=== PATIENT | female | born 1945 | race Caucasian/White ===

== ENCOUNTER → 2016-08-28 | Outpatient (REF) | payer MEDICARE ==
[2016-08-28 16:32] LABS: BASO # 0.2 K/mm3 (0.0-0.2); BASO % 2.6 % (0.0-1.0); EOS # 0.2 K/mm3 (0.0-0.50); EOS % 2.7 % (0.0-3.0); LARGE UNSTAINED CELL # 0.1 K/mm3 (0.0-0.4); LARGE UNSTAINED CELL % 1.2 % (0.0-4.0); LYMPH % 25.8 % (24.0-44.0); MEAN CORPUSCULAR HEMOGLOBIN 31.8 pg (27.0-33.0); MEAN CORPUSCULAR HGB CONC 33.3 g/dl (32.0-36.5); MEAN CORPUSCULAR VOLUME 95.2 fl (80.0-96.0); MONO # 0.4 K/mm3 (0.0-0.8); MONO % 5.7 % (0.0-5.0); NEUTROPHILS # 4.6 K/mm3 (1.8-7.7); PLATELET COUNT, AUTOMATED 332 k/mm3 (150-450); RED CELL DISTRIBUTION WIDTH 13.2 % (11.5-14.5); WHITE BLOOD COUNT 7.4 K/mm3 (4.0-10.0)
[2016-08-28 17:48] LABS: ERYTHROCYTE SEDIMENTATION RATE 6 mm/hr (0-30)
[2016-08-30 14:09] LABS: Lyme Disease IgG/IgM Antibodie <0.91 ISR (0.00-0.90); Lyme Disease IgM Ab Quantitati <0.80 index (0.00-0.79)
== END ==
LOC: M LABDRAW1 15:42
PROVIDERS: ATTEND Orthopaedic Surgery
DX: M54.5 Low back pain (principal)

== ENCOUNTER → 2016-10-13 | Outpatient (CLI) | payer MEDICARE ==
[~2016-10-13] MED LIST: IRON1TAB PO; PRAM0.123 PO; SLO MAG PO; VITA200016 PO
[2016-10-13 12:59] LABS: BASO # 0.1 K/mm3 (0.0-0.2); EOS # 0.2 K/mm3 (0.0-0.50); LARGE UNSTAINED CELL # 0.1 K/mm3 (0.0-0.4); LARGE UNSTAINED CELL % 1.4 % (0.0-4.0); LYMPH # 2.2 K/mm3 (1.5-4.5); LYMPH % 28.7 % (24.0-44.0); MEAN CORPUSCULAR HEMOGLOBIN 31.7 pg (27.0-33.0); MEAN CORPUSCULAR HGB CONC 32.6 g/dl (32.0-36.5); MEAN CORPUSCULAR VOLUME 97.1 fl (80.0-96.0); MONO # 0.4 K/mm3 (0.0-0.8); MONO % 4.8 % (0.0-5.0); NEUTROPHILS # 4.5 K/mm3 (1.8-7.7); PLATELET COUNT, AUTOMATED 380 k/mm3 (150-450); WHITE BLOOD COUNT 7.3 K/mm3 (4.0-10.0)
[2016-10-13 13:20] LABS: ANION GAP 8 MEQ/L (8-16); BLOOD UREA NITROGEN 16 MG/DL (7-18); CALCIUM LEVEL 9.2 MG/DL (8.8-10.2); CARBON DIOXIDE LEVEL 29 MEQ/L (21-32); CHLORIDE LEVEL 105 MEQ/L (98-107); CREATININE FOR GFR 0.73 MG/DL (0.55-1.02); GLOMERULAR FILTRATION RATE > 60.0 (>39); GLUCOSE, FASTING 94 MG/DL (83-110); POTASSIUM SERUM 4.1 MEQ/L (3.5-5.1); SODIUM LEVEL 142 MEQ/L (136-145)
--- NOTE | 2016-10-13 13:29 | REP ---
CHEST, TWO VIEWS: HISTORY: Preadmission. A calcified granuloma is present in the right upper lobe. The left lung is clear. The heart is normal in size. The pulmonary vasculature is normal in appearance. The bony structure is intact. IMPRESSION: Old granulomatous disease. Signed by Nader Rivera MD 10/13/2016 01:30 P
--- NOTE | 2016-10-13 18:02 | ECGEPIP ---
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 Subtle ST scooping No prior tracing for comparison Clinical correlation advised. Electronically Signed On 10-13-2016 18:01:47 EST by Ronni Mccarthy
== END ==
LOC: M LAB 11:57
PROVIDERS: ATTEND Podiatrist
DX: L98.8 Other specified disorders of the skin and subcutaneous tissue (principal)

== ENCOUNTER → 2016-10-22 | Day surgery (SDC) | payer MEDICARE ==
[~2016-10-22] VITALS: Ht 157.5 cm; Wt 61.7 kg
[~2016-10-22] MED LIST changes: +BACITRACIN PWD 50,000 UNITS VIAL As Ordered ONE; +BACITRACIN PWD 50,000 UNITS VIAL IR ONE; +BUPIVACAINE HCL 0.5% 30 ML VIAL As Ordered ONE; +BUPIVACAINE HCL 0.5% 30 ML VIAL SC ONE; +LIDOCAINE 2% INJ 100 MG/5 ML SDV (FOR ANES.) As Ordered ONE; +LIDOCAINE 2% MDV 20 ML VIAL As Ordered ONE; +LIDOCAINE 2% MDV 20 ML VIAL SC ONE; +LR 1,000 ML IV SCH; +MIDAZOLAM INJ 2 MG/2 ML VIAL (J2250) As Ordered ONE; +NEOSPORIN GU IRRIG 20 ML VIAL As Ordered ONE; +NEOSPORIN GU IRRIG 20 ML VIAL IR ONE; +PROPOFOL 200 MG/20 ML VIAL As Ordered ONE; +dexameTHASONE 4 MG/ML 1ML VIAL (J1100) As Ordered ONE; +dexameTHASONE 4 MG/ML 1ML VIAL (J1100) XX ONE; +fentaNYL 100 MCG/2 ML INJECTION (J3010) As Ordered ONE
[2016-10-22 10:05] VITALS: BP 130/62
--- NOTE | 2016-10-22 13:12 | RO ---
DATE OF PROCEDURE: 10/22/2016 PREPROCEDURE DIAGNOSIS: Soft tissue mass, plantar surface fourth toe, right foot. POSTPROCEDURE DIAGNOSIS: Soft tissue mass, plantar surface fourth toe, right foot. PROCEDURE PERFORMED: Excision of soft tissue mass fourth toe, right foot. SURGEON: Ronni Ennis DPM ASSISTANT CHIEF OF POLICE: None. IMPLANTABLES: None. IRRIGATION: Dilute Bacitracin, neomycin, and polymyxin B solution. HEMOSTASIS: Ankle pneumatic tourniquet at 200 mmHg for 10 minutes. ANESTHESIA: Local MAC. DESCRIPTION OF PROCEDURE: On 10/22/2016, this 71-year-old white female was taken from the hospital room to the operating room and placed on the operating table in a supine position. Following the induction of IV sedation and local and regional anesthesia, the right lower extremity was prepped and draped in the usual aseptic manner. The ankle pneumatic tourniquet was rapidly inflated to 200 mmHg. Attention was directed to the plantar surface of the right foot and the following procedure was performed: EXCISION OF SOFT TISSUE MASS, FOURTH TOE, RIGHT FOOT: Incision was made on the plantar surface of the foot over an area of soft tissue swelling. Dissection was carried down. There was an area of soft tissue swelling with some hemorrhagic tissue, possible pedal varix, cystic change . This area was excised. The extensor tendon was released on the medial side and was inspected for any penetration or mass formation. No other areas of irrigation were noted. THe wound was flushed with copious amounts of dilute bacitracin, neomycin, and polymyxin B solution. THe skin was coapted and maintained utilizing #4-0 Prolene in a simple interrupted type fashion. Sterile dressing was applied, consisting of Adaptic, 4 x 4's, Moses and Coban. Ankle pneumatic tourniquet was rapidly deflated and instantaneous capillary refill time was noted to digits 1 through 5 of the patient's right foot. The patient, after apparently tolerating the surgical procedure well, was taken from the operating room to the recovery room, vital signs stable, patient afebrile for further monitoring by the anesthesia department. All surgical specimens removed during the operating procedure were sent to pathology for gross microscopic examination. Postoperative instructions given upon discharge. VIVIENNE
== END | disposition home or self-care (01) ==
LOC: M SDC 07:13
PROVIDERS: ATTEND Podiatrist
DX: M67.471 Ganglion, right ankle and foot (principal); K21.9 Gastro-esophageal reflux disease without esophagitis; Z79.899 Other long term (current) drug therapy; Z88.8 Allergy status to other drugs, medicaments and biological substances
CPT/HCPCS: 28092; 88304; J1100; J2250; J3010

== ENCOUNTER → 2016-12-11 | Outpatient (REF) | payer MEDICARE ==
[~2016-12-11] MED LIST changes: -BACITRACIN PWD 50,000 UNITS VIAL As Ordered ONE; -BACITRACIN PWD 50,000 UNITS VIAL IR ONE; -BUPIVACAINE HCL 0.5% 30 ML VIAL As Ordered ONE; -BUPIVACAINE HCL 0.5% 30 ML VIAL SC ONE; -LIDOCAINE 2% INJ 100 MG/5 ML SDV (FOR ANES.) As Ordered ONE; -LIDOCAINE 2% MDV 20 ML VIAL As Ordered ONE; -LIDOCAINE 2% MDV 20 ML VIAL SC ONE; -LR 1,000 ML IV SCH; -MIDAZOLAM INJ 2 MG/2 ML VIAL (J2250) As Ordered ONE; -NEOSPORIN GU IRRIG 20 ML VIAL As Ordered ONE; -NEOSPORIN GU IRRIG 20 ML VIAL IR ONE; -PROPOFOL 200 MG/20 ML VIAL As Ordered ONE; -dexameTHASONE 4 MG/ML 1ML VIAL (J1100) As Ordered ONE; -dexameTHASONE 4 MG/ML 1ML VIAL (J1100) XX ONE; -fentaNYL 100 MCG/2 ML INJECTION (J3010) As Ordered ONE
[2016-12-11 14:07] LABS: BASO # 0.1 K/mm3 (0.0-0.2); BASO % 0.6 % (0.0-1.0); EOS # 0.2 K/mm3 (0.0-0.50); EOS % 1.8 % (0.0-3.0); LARGE UNSTAINED CELL # 0.1 K/mm3 (0.0-0.4); LARGE UNSTAINED CELL % 0.9 % (0.0-4.0); LYMPH # 1.6 K/mm3 (1.5-4.5); LYMPH % 17.3 % (24.0-44.0); MEAN CORPUSCULAR HEMOGLOBIN 31.7 pg (27.0-33.0); MEAN CORPUSCULAR HGB CONC 32.6 g/dl (32.0-36.5); MEAN CORPUSCULAR VOLUME 97.2 fl (80.0-96.0); MONO # 0.4 K/mm3 (0.0-0.8); MONO % 4.1 % (0.0-5.0); NEUTROPHILS # 7.1 K/mm3 (1.8-7.7); NEUTROPHILS % 75.4 % (36.0-66.0); PLATELET COUNT, AUTOMATED 316 k/mm3 (150-450); RED CELL DISTRIBUTION WIDTH 13.2 % (11.5-14.5); WHITE BLOOD COUNT 9.4 K/mm3 (4.0-10.0)
[2016-12-11 14:28] LABS: ANION GAP 7 MEQ/L (8-16); BLOOD UREA NITROGEN 12 MG/DL (7-18); CALCIUM LEVEL 8.8 MG/DL (8.8-10.2); CARBON DIOXIDE LEVEL 28 MEQ/L (21-32); CHLORIDE LEVEL 102 MEQ/L (98-107); CREATININE FOR GFR 0.67 MG/DL (0.55-1.02); GLOMERULAR FILTRATION RATE > 60.0 (>39); GLUCOSE, FASTING 72 MG/DL (83-110); POTASSIUM SERUM 4.5 MEQ/L (3.5-5.1); SODIUM LEVEL 137 MEQ/L (136-145)
== END ==
LOC: M LABNEURO 09:33
PROVIDERS: ATTEND Podiatrist
DX: Z01.812 Encounter for preprocedural laboratory examination (principal); Z79.899 Other long term (current) drug therapy

== ENCOUNTER → 2016-12-17 | Day surgery (SDC) | payer MEDICARE ==
[~2016-12-17] VITALS: Ht 157.5 cm; Wt 61.7 kg
[~2016-12-17] MED LIST changes: +BACITRACIN PWD 50,000 UNITS VIAL As Ordered ONE; +BUPIVACAINE HCL 0.5% 30 ML VIAL As Ordered ONE; +LIDOCAINE 2% MDV 20 ML VIAL As Ordered ONE; +LR 1,000 ML IV SCH; +MIDAZOLAM INJ 2 MG/2 ML VIAL (J2250) As Ordered ONE; +NEOSPORIN GU IRRIG 20 ML VIAL As Ordered ONE; +NORCO, ANEXSIA 5/325MG TABLET (HYDROcodone/ACETAMINOPHEN) PO PRN; +ONDANSETRON 4MG/2ML VIAL (J2405) As Ordered ONE; +ONDANSETRON 4MG/2ML VIAL (J2405) IV PRN; +PERCOCET 5MG/325MG TAB PO PRN; +PROPOFOL 500 MG/50 ML VIAL As Ordered ONE; +dexameTHASONE 4 MG/ML 1ML VIAL (J1100) As Ordered ONE; +diphenhydrAMINE INJ 50MG/ML VIAL (J1200) As Ordered ONE; +fentaNYL 100 MCG/2 ML INJECTION (J3010) As Ordered ONE
[2016-12-17] MEDS: diphenhydrAMINE INJ 50MG/ML VIAL (J1200) IV PRN ×2 (09:33→10:00)
[2016-12-17 12:10] VITALS: BP 148/65
--- NOTE | 2016-12-17 23:15 | RO ---
DATE OF PROCEDURE: 12/17/2016 PREOPERATIVE DIAGNOSIS: Soft tissue mass plantar surface fourth toe right foot. POSTOPERATIVE DIAGNOSES: Fibrous tissue with keloid formation fourth toe right foot. OPERATIVE PROCEDURE: SURGEON: Ronni Ennis DPM ADULT BASIC EDUCATION TEACHER: Twila ANESTHESIA: Local Monitored anesthesia care (MAC) IRRIGATION: Dilute bacitracin, neomycin and polymyxin B solution. HEMOSTASIS: Ankle pneumatic tourniquet at 200 mmHg for 13 minutes. DESCRIPTION OF OPERATION: On 12/17/2016, this 71-year-old female was taken from her hospital room to the operating room and placed on the operating room table in the supine position. Following the induction of IV sedation and local anesthesia, attention was directed to the patient's right foot. However, the patient was having some sporadic movement of her upper arms and legs. We were concerned for a possible side effect from anesthesia. Therefore, the patient was lightened from anesthesia and she was brought to the recovery room for observation. After approximately an hour the patient was feeling fine and wished to reattempt surgery. She was brought into the operating room, given minimal sedation and no such reoccurrance was noted. Attention was directed to the plantar surface of the foot. The tourniquet was rapidly inflated and attention was directed to the fourth toe of the right foot where the following procedure was performed. ELLIPSE OF KELOID TISSUE AND EXCISION OF FIBROUS TISSUE PLANTAR SURFACE FOURTH TOE RIGHT FOOT. Attention was directed to the patient's fourth toe. 2 cm elliptical incisions were placed around the surgical incision. The fibrous tissue was then excised to the level of the flexor tendons. The wound was thoroughly explored. There was no nodule formation on the plantar tendons. The tendons were functioning. No other soft tissue mass could be palpated. The wound was thoroughly lavaged with dilute bacitracin and polymyxin B solution. Attention was directed towards closure where the skin was coapted and maintained with #4-0 Prolene in a simple interrupted type fashion. Compressive dressing was applied to the patient's right foot. The tourniquet was rapidly deflated and instantaneous capillary refill time was noted in digits 1 through 5 of the patient's right foot. The patient having apparently tolerated the surgical procedure well was taken to from the OR to the recovery room with vital signs stable, the patient afebrile for further monitoring by the anesthesia department. All surgical specimens removed during the operative procedure were sent to pathology for gross and microscopic examination. Postoperative instructions were given upon discharge.
== END | disposition home or self-care (01) ==
LOC: M SDC 07:09
PROVIDERS: ATTEND Podiatrist
DX: M79.89 Other specified soft tissue disorders (principal); D49.2 Neoplasm of unspecified behavior of bone, soft tissue, and skin; M20.41 Other hammer toe(s) (acquired), right foot; Z79.899 Other long term (current) drug therapy; Z88.8 Allergy status to other drugs, medicaments and biological substances
CPT/HCPCS: 28043; 88304; J0690; J1100; J1200; J2250; J2405; J3010

== ENCOUNTER 2017-11-13 08:58 | Day surgery (SDC) | payer MEDICARE ==
[2017-11-13] MEDS ORDERED: LIDOCAINE 1% MDV 20ML VIAL SQ (09:00)
[2017-11-13] MEDS: LR 1,000 ML IV ×2 (09:46→11:17)
[2017-11-13] MEDS ORDERED: MIDAZOLAM INJ 2 MG/2 ML VIAL (J2250) As Ordered (10:43)
[2017-11-13] MEDS ORDERED: PROPOFOL 200 MG/20 ML VIAL As Ordered ×3 (10:44→13:41)
[2017-11-13] MEDS ORDERED: LIDOCAINE 2% INJ 100 MG/5 ML SDV (FOR ANES.) As Ordered (10:44)
[2017-11-13] MEDS: BUPIVACAINE HCL 0.5% 30 ML VIAL As Ordered (10:58)
[2017-11-13] MEDS: LIDOCAINE 2% MDV 20 ML VIAL As Ordered (10:58)
[2017-11-13] MEDS: NEOSPORIN GU IRRIG 20 ML VIAL As Ordered (10:58)
[2017-11-13] MEDS: BACITRACIN PWD 50,000 UNITS VIAL As Ordered (10:58)
[2017-11-13] MEDS: dexameTHASONE 4 MG/ML 1ML VIAL (J1100) As Ordered (11:00)
[2017-11-13] MEDS ORDERED: HALOPERIDOL 5 MG/ML VIAL (J1630) IV (12:00)
[2017-11-13] MEDS: HALOPERIDOL 5 MG/ML VIAL (J1630) IV (12:00)
[2017-11-13] MEDS ORDERED: fentaNYL 100 MCG/2 ML INJECTION (J3010) IV (12:15)
[2017-11-13] MEDS ORDERED: PERCOCET 5MG/325MG TAB PO (12:15)
[2017-11-13] MEDS: PRAMIPEXOLE (MIRAPEX) 0.125 MG TAB PO (12:15)
[2017-11-13] MEDS ORDERED: FLUMAZENIL 0.5 MG/5 ML VIAL As Ordered (13:42)
[2017-11-13] MEDS ORDERED: diphenhydrAMINE INJ 50MG/ML VIAL (J1200) As Ordered (13:42)
== END 2017-11-13 14:05 | disposition home or self-care (01) ==
LOC: M SDC 08:58
DX: G57.61 Lesion of plantar nerve, right lower limb (principal); M79.671 Pain in right foot; Z79.82 Long term (current) use of aspirin; Z79.899 Other long term (current) drug therapy; Z88.8 Allergy status to other drugs, medicaments and biological substances
CPT/HCPCS: 28080

== ENCOUNTER → 2019-04-11 | Outpatient (REF) | payer MEDICARE ==
[~2019-04-11] MED LIST changes: +ASPI81TA26 PO; -BACITRACIN PWD 50,000 UNITS VIAL As Ordered ONE; -BUPIVACAINE HCL 0.5% 30 ML VIAL As Ordered ONE; +FERR1TAB8; +GABA-843; -LIDOCAINE 2% MDV 20 ML VIAL As Ordered ONE; -LR 1,000 ML IV SCH; -MIDAZOLAM INJ 2 MG/2 ML VIAL (J2250) As Ordered ONE; -NEOSPORIN GU IRRIG 20 ML VIAL As Ordered ONE; -NORCO, ANEXSIA 5/325MG TABLET (HYDROcodone/ACETAMINOPHEN) PO PRN; -ONDANSETRON 4MG/2ML VIAL (J2405) As Ordered ONE; -ONDANSETRON 4MG/2ML VIAL (J2405) IV PRN; -PERCOCET 5MG/325MG TAB PO PRN; -PRAM0.123 PO; +PRAM0.126 PO; -PROPOFOL 500 MG/50 ML VIAL As Ordered ONE; -dexameTHASONE 4 MG/ML 1ML VIAL (J1100) As Ordered ONE; -diphenhydrAMINE INJ 50MG/ML VIAL (J1200) As Ordered ONE; -fentaNYL 100 MCG/2 ML INJECTION (J3010) As Ordered ONE
== END ==
LOC: M LAB REF 19:42
PROVIDERS: ATTEND Podiatrist
DX: M67.471 Ganglion, right ankle and foot (principal)

== ENCOUNTER → 2019-09-23 | Outpatient (RCR) | payer MEDICARE, BC | LOC: M PT 09-02 09:46 | PROVIDERS: ATTEND Psychiatry & Neurology Neurology | DX: I89.0 Lymphedema, not elsewhere classified (principal) ==

== ENCOUNTER 2019-10-10 14:04 | Outpatient (RCR) | payer MEDICARE, BC | END 2019-10-22 | LOC: M PT 14:04 | PROVIDERS: ATTEND Psychiatry & Neurology Neurology | DX: I89.0 Lymphedema, not elsewhere classified (principal) ==

== ENCOUNTER 2019-12-09 08:23 | Outpatient (RCR) | payer MEDICARE, BC | END 2019-12-22 | LOC: M PT 08:23 | PROVIDERS: ATTEND Psychiatry & Neurology Neurology | DX: Z51.89 Encounter for other specified aftercare (principal); M79.604 Pain in right leg ==

== ENCOUNTER 2020-06-11 08:26 | Outpatient (RCR) | payer MEDICARE, BC | END 2020-06-23 | LOC: M PT 08:26 | PROVIDERS: ATTEND Psychiatry & Neurology Neurology | DX: M79.604 Pain in right leg (principal) ==

== ENCOUNTER 2020-12-11 09:04 | Outpatient (RCR) | payer MEDICARE, BC ==
[~2020-12-11 09:04] MED LIST changes: +GABA-282; -GABA-843
[2020-12-20] MEDS ORDERED: MIRA0.254 PO ×2 (12:46→13:00)
[2020-12-20] MEDS ORDERED: OMEP-221 PO (12:46)
[2020-12-20] MEDS ORDERED: MIRA0.12 PO (13:00)
[2020-12-20] MEDS ORDERED: IRON65TA2 PO (13:00)
[2020-12-20] MEDS ORDERED: ULTR5TAB PO (13:00)
[2020-12-20] MEDS ORDERED: RA B2500 PO (13:00)
[2020-12-20] MEDS ORDERED: LATA0.0015 OP (13:00)
== END 2020-12-21 ==
LOC: M PT 09:04
PROVIDERS: ATTEND Internal Medicine
DX: I89.0 Lymphedema, not elsewhere classified (principal)

== ENCOUNTER → 2021-01-02 | Outpatient (CLI) | payer MEDICARE, BC ==
[~2021-01-02] MED LIST changes: +IRON65TA2 PO; +LATA0.0015 OP; +MIRA0.12 PO; +MIRA0.254 PO; +OMEP-221 PO; +RA B2500 PO; +ULTR5TAB PO
== END ==
LOC: M LABSMTC 10:47
PROVIDERS: ATTEND Anesthesiology
DX: Z01.818 Encounter for other preprocedural examination (principal); Z11.52 Encounter for screening for COVID-19

== ENCOUNTER 2021-01-07 07:18 | Day surgery (SDC) | payer MEDICARE, BC ==
[~2021-01-07] VITALS: Ht 157.5 cm; Wt 59.4 kg
[~2021-01-07 07:18] MED LIST changes: +NS 1,000 ML IV ONE
[2021-01-07] MEDS ORDERED: propofoL 200 MG/20 ML VIAL As Ordered ONE ×2 (08:16→08:33)
[2021-01-07] MEDS ORDERED: LIDOCAINE 2% INJ 100 MG/5 ML SYRINGE As Ordered ONE (08:16)
[2021-01-07] MEDS ORDERED: fentaNYL 100 MCG/2 ML INJECTION (J3010) As Ordered ONE (08:17)
--- NOTE | 2021-01-07 08:31 | ROOR ---
Patient Name: Mirian Pena Procedure Date: 01/07/2021 8:18 AM Date of : 1945 Age: 75 Room: [facility] Gender: Female Note Status: Finalized Procedure: Upper GI endoscopy Indications: Iron deficiency anemia Providers: Justo Smith MD Referring MD: CLAUDIA GURROLA MD Requesting Provider: Medicines: Monitored Anesthesia Care Complications: No immediate complications. Procedure: Pre-Anesthesia Assessment: - Prior to the procedure, a History and Physical was performed, and patient medications and allergies were reviewed. The patient is competent. The risks and benefits of the procedure and the sedation options and risks were discussed with the patient. All questions were answered and informed consent was obtained. Patient identification and proposed procedure were verified by the physician, the nurse and the anesthesiologist in the procedure room. Mental Status Examination: alert and oriented. Airway Examination: normal oropharyngeal airway and neck mobility. Respiratory Examination: clear to auscultation. CV Examination: normal. Prophylactic Antibiotics: The patient does not require prophylactic antibiotics. Prior Anticoagulants: The patient has taken no previous anticoagulant or antiplatelet agents. ASA Grade Assessment: II - A patient with mild systemic disease. After reviewing the risks and benefits, the patient was deemed in satisfactory condition to undergo the procedure. The anesthesia plan was to use monitored anesthesia care (MAC). Immediately prior to administration of medications, the patient was re-assessed for adequacy to receive sedatives. The heart rate, respiratory rate, oxygen saturations, blood pressure, adequacy of pulmonary ventilation, and response to care were monitored throughout the procedure. The physical status of the patient was re-assessed after the procedure. The Endoscope was introduced through the mouth, and advanced to the second part of duodenum. The upper GI endoscopy was accomplished without difficulty. The patient tolerated the procedure well. Findings: A large hiatal hernia was present. The Z-line was regular and was found 35 cm from the incisors. Scattered mild inflammation characterized by erythema, friability and granularity was found in the gastric antrum. Biopsies were taken with a cold forceps for Helicobacter pylori testing. Verification of patient identification for the specimen was done by the physician and nurse using the patient's name, date and medical record number. Estimated blood loss was minimal. The duodenal bulb and second portion of the duodenum were normal. Impression: - Large hiatal hernia. - Z-line regular, 35 cm from the incisors. - Gastritis. Biopsied. - Normal duodenal bulb and second portion of the duodenum. Recommendation: - Patient has a contact number available for emergencies. The signs and symptoms of potential delayed complications were discussed with the patient. Return to normal activities tomorrow. Written discharge instructions were provided to the patient. - High fiber diet. - Continue present medications. - Await pathology results. - Follow an antireflux regimen. - Telephone GI clinic for pathology results in 2 weeks. - Return to primary care physician. Procedure Code(s): --- Professional --- 00631, Esophagogastroduodenoscopy, flexible, transoral; with biopsy, single or multiple Diagnosis Code(s): --- Professional --- K44.9, Diaphragmatic hernia without obstruction or gangrene K29.70, Gastritis, unspecified, without bleeding D50.9, Iron deficiency anemia, unspecified CPT copyright 2019 [employer]. All rights reserved. The codes documented in this report are preliminary and upon ventilated rib fitter review may be revised to meet current compliance requirements. Justo Smith MD Justo Smith MD 01/07/2021 8:31:34 AM Electronically signed by Justo Smith MD Number of Addenda: 0 Note Initiated On: 01/07/2021 8:18 AM Estimated Blood Loss: Estimated blood loss was minimal.
--- NOTE | 2021-01-07 09:07 | ROOR ---
Patient Name: Mirian Pena Procedure Date: 01/07/2021 8:19 AM Date of : 1945 Age: 75 Room: [facility] Gender: Female Note Status: Finalized Procedure: Colonoscopy Indications: Iron deficiency anemia Providers: Justo Smith MD Referring MD: CLAUDIA GURROLA MD Requesting Provider: Medicines: Monitored Anesthesia Care Complications: No immediate complications. Procedure: Pre-Anesthesia Assessment: - Prior to the procedure, a History and Physical was performed, and patient medications and allergies were reviewed. The patient is competent. The risks and benefits of the procedure and the sedation options and risks were discussed with the patient. All questions were answered and informed consent was obtained. Patient identification and proposed procedure were verified by the physician, the nurse and the anesthesiologist in the procedure room. Mental Status Examination: alert and oriented. Airway Examination: normal oropharyngeal airway and neck mobility. Respiratory Examination: clear to auscultation. CV Examination: normal. Prophylactic Antibiotics: The patient does not require prophylactic antibiotics. Prior Anticoagulants: The patient has taken no previous anticoagulant or antiplatelet agents. ASA Grade Assessment: II - A patient with mild systemic disease. After reviewing the risks and benefits, the patient was deemed in satisfactory condition to undergo the procedure. The anesthesia plan was to use monitored anesthesia care (MAC). Immediately prior to administration of medications, the patient was re-assessed for adequacy to receive sedatives. The heart rate, respiratory rate, oxygen saturations, blood pressure, adequacy of pulmonary ventilation, and response to care were monitored throughout the procedure. The physical status of the patient was re-assessed after the procedure. The Colonoscope was introduced through the anus and advanced to the terminal ileum, with identification of the appendiceal orifice and IC valve. The colonoscopy was performed without difficulty. The patient tolerated the procedure well. The quality of the bowel preparation was good. The terminal ileum, ileocecal valve, appendiceal orifice, and rectum were photographed. Scope insertion time was 2 minutes. Scope withdrawal time was 9 minutes. The total duration of the procedure was 12 minutes. Findings: The perianal and digital rectal examinations were normal. The terminal ileum appeared normal. A 3 mm polyp was found in the ascending colon. The polyp was sessile. The polyp was removed with a cold snare. Resection and retrieval were complete. Verification of patient identification for the specimen was done by the physician and nurse using the patient's name, date and medical record number. Estimated blood loss was minimal. Three medium-sized patchy angioectasias with typical arborization were found in the ascending colon. Coagulation for destruction of remaining portion of lesion using argon plasma at 0.8 liters/minute and 20 rodriguez was successful. Non-bleeding external and internal hemorrhoids were found during retroflexion. The hemorrhoids were large. Impression: - The examined portion of the ileum was normal. - One 3 mm polyp in the ascending colon, removed with a cold snare. Resected and retrieved. - Three colonic angioectasias. Treated with argon plasma coagulation (APC). - Non-bleeding external and internal hemorrhoids. Recommendation: - Patient has a contact number available for emergencies. The signs and symptoms of potential delayed complications were discussed with the patient. Return to normal activities tomorrow. Written discharge instructions were provided to the patient. - High fiber diet. - Continue present medications. - Await pathology results. - Repeat colonoscopy in 5-10 years for surveillance and depending on clinical and functional status. - Telephone GI clinic for pathology results in 2 weeks. - Return to primary care physician. - Check CBC, serum iron , transferrin and ferritin levels (fasting labs) in 2 months. Procedure Code(s): --- Professional --- 29619, Colonoscopy, flexible; with ablation of tumor(s), polyp(s), or other lesion(s) (includes pre- and post-dilation and guide wire passage, when performed) 80477, 59, Colonoscopy, flexible; with removal of tumor(s), polyp(s), or other lesion(s) by snare technique Diagnosis Code(s): --- Professional --- K64.8, Other hemorrhoids K63.5, Polyp of colon K55.20, Angiodysplasia of colon without hemorrhage D50.9, Iron deficiency anemia, unspecified CPT copyright 2019 [employer]. All rights reserved. The codes documented in this report are preliminary and upon certified medical coder review may be revised to meet current compliance requirements. Justo Smith MD Justo Smith MD 01/07/2021 9:06:43 AM Electronically signed by Justo Smith MD Number of Addenda: 0 Note Initiated On: 01/07/2021 8:19 AM Estimated Blood Loss: Estimated blood loss was minimal.
[2021-01-07 09:15] VITALS: BP 151/63
== END 2021-01-07 09:35 | disposition home or self-care (01) ==
LOC: M OPP 07:18
PROVIDERS: ATTEND Internal Medicine Gastroenterology
DX: K63.5 Polyp of colon (principal); K55.20 Angiodysplasia of colon without hemorrhage; K64.8 Other hemorrhoids; D50.9 Iron deficiency anemia, unspecified; K44.9 Diaphragmatic hernia without obstruction or gangrene; K29.70 Gastritis, unspecified, without bleeding; Z79.899 Other long term (current) drug therapy; Z88.8 Allergy status to other drugs, medicaments and biological substances; Z91.041 Radiographic dye allergy status; Z91.048 Other nonmedicinal substance allergy status
CPT/HCPCS: 43239; 45385; 45388; 88305; J3010

== ENCOUNTER → 2021-04-02 | Outpatient (CLI) | payer MEDICARE, BC ==
[~2021-04-02] MED LIST changes: -NS 1,000 ML IV ONE
[2021-04-02 09:49] LABS: BASO # 0.1 10^3/uL (0.0-0.2); BASO % 1.2 % (0.0-1.0); EOS # 0.2 10^3/uL (0.0-0.5); EOS % 3.1 % (0.0-3.0); HEMATOCRIT 42.2 % (36.0-47.0); HEMOGLOBIN 13.9 g/dl (12.0-15.5); LYMPH # 1.8 10^3/uL (1.5-5.0); LYMPH % 24.3 % (24.0-44.0); MEAN CORPUSCULAR HEMOGLOBIN 31.7 pg (27.0-33.0); MEAN CORPUSCULAR HGB CONC 32.9 g/dl (32.0-36.5); MEAN CORPUSCULAR VOLUME 96.1 fl (80.0-96.0); MONO # 0.7 10^3/uL (0.0-0.8); MONO % 9.6 % (2.0-8.0); NEUTROPHILS # 4.5 10^3/uL (1.5-8.5); NEUTROPHILS % 61.5 % (36.0-66.0); PLATELET COUNT, AUTOMATED 320 10^3/uL (150-450); RED BLOOD COUNT 4.39 10^6/uL (4.00-5.40); WHITE BLOOD COUNT 7.3 10^3/uL (4.0-10.0)
[2021-04-02 10:19] LABS: BLOOD UREA NITROGEN 12 MG/DL (7-18); CREATININE FOR GFR 0.65 MG/DL (0.55-1.30); FERRITIN 27 NG/ML (8-252); GLOMERULAR FILTRATION RATE > 60.0 (>39); IRON (FE) 40 UG/DL (50-170); PERCENT SATURATION 10.4 % (13.2-45.0); TOTAL IRON BINDING CAPACITY 383 UG/DL (250-450)
== END ==
LOC: M LAB 09:23
PROVIDERS: ATTEND Internal Medicine Gastroenterology
DX: D50.9 Iron deficiency anemia, unspecified (principal); K55.20 Angiodysplasia of colon without hemorrhage

== ENCOUNTER 2021-06-12 08:21 | Outpatient (RCR) | payer MEDICARE, BC | END 2021-06-23 | LOC: M PT 08:21 | PROVIDERS: ATTEND Internal Medicine | DX: M79.604 Pain in right leg (principal) ==

== ENCOUNTER 2022-06-17 08:19 | Outpatient (RCR) | payer MEDICARE, BC ==
[~2022-06-17 08:19] MED LIST changes: -OMEP-221 PO; +OMEP40CA5 PO
== END 2022-06-23 ==
LOC: M PT 08:19
PROVIDERS: ATTEND Internal Medicine
DX: I89.0 Lymphedema, not elsewhere classified (principal)

== ENCOUNTER → 2022-06-30 | Outpatient (CLI) | payer MEDICARE, BC ==
[~2022-06-30] MED LIST changes: +**SFHN** BUPIVACAINE HCL 0.5% 10ML VIAL ONE; +**SFHN** LIDOCAINE 1% MDV 20ML VIAL ONE; +ISOVUE-300 61% 50ML VIAL ONE; +methylPREDNISolone 80MG/ML SUSP 1ML VIAL (J1040) ONE
== END ==
LOC: M PLAIMG 14:57
PROVIDERS: ATTEND Orthopaedic Surgery
DX: M25.551 Pain in right hip (principal)
CPT/HCPCS: 20610; 76000; J1040; Q9967

== ENCOUNTER 2022-12-19 09:49 | Outpatient (RCR) | payer MEDICARE ==
[~2022-12-19 09:49] MED LIST changes: -**SFHN** BUPIVACAINE HCL 0.5% 10ML VIAL ONE; -**SFHN** LIDOCAINE 1% MDV 20ML VIAL ONE; -ISOVUE-300 61% 50ML VIAL ONE; -methylPREDNISolone 80MG/ML SUSP 1ML VIAL (J1040) ONE
== END 2022-12-21 ==
LOC: M PT 09:49
PROVIDERS: ATTEND Internal Medicine
DX: I89.0 Lymphedema, not elsewhere classified (principal)

== ENCOUNTER 2023-01-12 08:20 | Outpatient (RCR) | payer MEDICARE | END 2023-01-21 | LOC: M PT 08:20 | PROVIDERS: ATTEND Internal Medicine | DX: I89.0 Lymphedema, not elsewhere classified (principal) ==

== ENCOUNTER 2023-01-23 12:38 | Outpatient (RCR) | payer MEDICARE | END 2023-02-20 | LOC: M PT 12:38 | PROVIDERS: ATTEND Internal Medicine | DX: M79.604 Pain in right leg (principal); I89.0 Lymphedema, not elsewhere classified ==

== ENCOUNTER 2023-07-27 09:06 | Outpatient (RCR) | payer MEDICARE | END 2023-08-23 | LOC: M PT 09:06 | PROVIDERS: ATTEND Internal Medicine | DX: I89.0 Lymphedema, not elsewhere classified (principal) ==

== ENCOUNTER 2024-07-27 09:06 | Outpatient (RCR) | payer MEDICARE ==
[~2024-07-27 09:06] MED LIST changes: +GABA-1172; -GABA-282
== END 2024-08-23 ==
LOC: M PT 09:06
PROVIDERS: ATTEND Internal Medicine
DX: I89.0 Lymphedema, not elsewhere classified (principal)

== ENCOUNTER 2025-08-02 09:06 | Outpatient (RCR) | payer MEDICARE | END 2025-08-23 | LOC: M PT 09:06 | PROVIDERS: ATTEND Internal Medicine | DX: I89.0 Lymphedema, not elsewhere classified (principal) ==